=== PATIENT | female | born 1960 | race Two or more races ===

== ENCOUNTER 2020-07-16 10:18 | Outpatient (CLI) | payer OTHER | END 2020-07-16 10:19 | disposition home or self-care (01) | LOC: PPH VACUNA 10:18 | DX: Z23 Encounter for immunization (principal) ==

== ENCOUNTER 2021-03-03 09:00 | Outpatient (CLI) | payer OTHER | END 2021-03-03 09:30 | disposition home or self-care (01) | LOC: PPH VACUNA 09:00 | PROVIDERS: ATTEND Emergency Medicine Pediatric Emergency Medicine | DX: Z23 Encounter for immunization (principal) ==

== ENCOUNTER 2021-10-12 13:38 | Outpatient (CLI) | payer OTHER | END 2021-10-12 13:53 | disposition home or self-care (01) | LOC: PPH VACUNA 13:38 | PROVIDERS: ATTEND Emergency Medicine Pediatric Emergency Medicine | DX: Z23 Encounter for immunization (principal) ==

== ENCOUNTER 2022-04-05 14:47 | Outpatient (CLI) | payer OTHER | END 2022-04-05 14:57 | disposition home or self-care (01) | LOC: PPH VACUNA 14:47 | PROVIDERS: ATTEND Emergency Medicine Pediatric Emergency Medicine | DX: Z23 Encounter for immunization (principal) ==